=== PATIENT | male | born 1935 | race Caucasian/White ===

== ENCOUNTER 2017-12-12 20:14 | Emergency (ER) | payer MEDICARE, OTHER, SELFPAY ==
[2017-12-12 20:15] VITALS: BP 179/103; PULSE 55; RESP 15; TEMP 36.7; BMI 30.5
--- NOTE | 2017-12-12 20:44 | CT_ITS ---
STUDY: CT ABDOMEN AND PELVIS WITH CONTRAST REASON FOR EXAM: Male, 82 years old. Left lower quadrant pain, history of colorectal cancer with resection RADIATION DOSAGE (If Supplied By Facility): CTDIvol = ( 18.8 ) mGy, DLP = ( 1122.08 ) mGycm TECHNIQUE: Transaxial images were obtained from the dome of the diaphragm to the symphysis pubis with oral contrast. 100 ml of Isovue 300 contrast was administered. Sagittal and coronal images were reconstructed. Individualized dose optimization techniques were used for this CT. COMPARISON: Previous study of October 04, 2016 FINDINGS: There is bibasilar atelectasis. There is mild aneurysmal dilatation of the ascending aorta measuring up to 4.1 cm in diameter. There is intrahepatic periportal edema. The gallbladder is filled with calcified gallstones. There are multiple benign calcified granulomata of the spleen. There is diffuse atrophy of the pancreas. The right adrenal appears normal. There is a 1.4 x 0.9 cm left adrenal nodule. Normal right kidney. There is a mild left hydronephrosis and hydroureter to the level of the ureterovesicular junction. There is an obstructing 2 mm calculus within the distal left ureter at the level of the UVJ. There is left perinephric stranding. There is a 1.7 cm left renal cyst. Normal visualized stomach. Normal small intestine. Postsurgical changes of the right hemicolon are noted. There are postsurgical changes of the rectum with perirectal fatty stranding present. There is non-visualization of the appendix. There are calcified plaques of the abdominal aorta. There is dilatation of the left and right iliac arterial systems. Normal inferior vena cava. There are scattered nonpathologically enlarged retroperitoneal nodes. Normal urinary bladder. The prostate is within normal limits. Normal abdominal wall. There are diffuse degenerative changes of the visualized thoracolumbar spine. There is a grade 2 anterolisthesis of L4 relative to L5 with bilateral L4 spondylolysis. CT/Abdomen/Pelvis WITH Contrast IMPRESSION: 1. Obstructing 2 mm calculus in the distal left ureter at the level of the UVJ with proximal left hydroureter and hydronephrosis. Left perinephric stranding is present. 2. Bibasilar atelectasis. 3. Mild aneurysmal dilatation of the ascending thoracic aorta measuring up to 4.1 cm in diameter. 4. Intrahepatic periportal edema. 5. Cholelithiasis. 6. Calcified granulomas of the spleen. 7. Pancreatic atrophy. 8. Postsurgical changes of the right hemicolon and rectum. Perirectal fatty stranding is present. 9. There is dilatation of the left and right iliac arterial systems. 10. Lumbar degenerative changes. Grade 2 anterolisthesis of L4 relative to L5 with bilateral L5 spondylolysis. Electronically Signed: Nixon De Leon MD at 23:29 EDT , Service support ,
[2017-12-12] MEDS: 0.9% Normal Saline 1,000 ML 125 ML IV (21:04)
[2017-12-12] MEDS: proMETHazine 25 MG/ML Syringe 6.25 MG IV (21:05)
[2017-12-12] MEDS: Morphine 4 MG/ML Syringe IV (21:06)
[2017-12-12 21:18] LABS: Mean Corpuscular Volume 92.9 fL (80-94); Red Blood Count 4.92 M/mm3 (4.6-6.2)
[2017-12-12 21:20] LABS: POSITIVE COUNT NO; POSITIVE DIFFERENTIAL NO; POSITIVE MORPHOLOGY NO
[2017-12-12 21:22] LABS: Hematocrit 45.6 % (40-54); Hemoglobin 15.5 g/dl (13.0-16.5); Mean Corpuscular Hgb 31.5 pg (27.0-32.0); White Blood Count 8.2 K/mm3 (4.4-11.0)
[2017-12-12 21:23] LABS: Platelet Count 127 K/mm3 (150-450); RBC Distribution Width CV 13.3 % (11.6-14.6); RBC Distribution Width SD 43.6 fl (35.1-43.9)
[2017-12-12 21:24] LABS: Eosinophils% 0.9 % (0-5); Lymphocyte % 7.7 % (19-41); Mean Platelet Vol. 9.4 fl (6.2-12.0); Monocyte% 7.6 % (0-10); Neutrophil % 83.2 % (47-70)
[2017-12-12 21:25] LABS: Absolute Neutrophil Count 6.8 X10^3/uL (2.0-7.7); Basophil% 0.4 % (0-1); Lymphocyte # 0.63 X10^3/ul (4.0); Neutrophil # 6.79 X10^3/uL (2.7-7.7)
[2017-12-12 21:26] LABS: Absolute Lymphocyte Count 0.63 X10^3/ul (0.83-4.51); Basophil# 0.03 X10^3/uL; Eosinophil# 0.07 X10^3/uL; Monocyte# 0.62 X10^3/uL
[2017-12-12 21:39] LABS: Anion Gap 7 (5-15); BUN 26 mg/dL (7-18); BUN/Creat Ratio 20.5 RATIO (10-20); Chloride 112 mmol/L (98-107); Creatinine, Serum 1.27 mg/dL (0.70-1.30); EST Glomerular Filtration Rate 58 mL/min (>60); Est Glom Filt Rate - Afr Amer 70 mL/min (>60); Estimated Creatinine Clearance 49.22 ml/min; Glucose 144 mg/dL (74-106); Potassium 3.9 mmol/L (3.5-5.1); Sodium Level 144 mmol/L (136-145)
[2017-12-12 23:25] LABS: Bacteria 0 SEEN /hpf (None Seen); Mucous, Urine 0 SEEN /hpf (<or=2+); Red Blood Cells-Urine 0 SEEN /hpf (0-5); White Blood Cells 0 SEEN /hpf (0-5)
[2017-12-12 23:28] LABS: Color, Urine Yellow (Yellow); Glucose, Dipstick Normal (Normal); Ketone-Dipstick 15 mg/dl (Negative); Leukocyte Esterase-Dipstick Negative /ul (Negative); Nitrite-Dipstick Negative (Negative); Occult Blood-Urine Negative /ul (Negative); Protein-Dipstick Negative (Negative); Specific Gravity, Urine 1.025 (1.002-1.030); Urine Bilirubin Dipstick Negative (Negative); Urine Clarity Clear (Clear); Urine Urobilinogen Normal (Normal)
[2017-12-12 23:39] LABS: Squamous Epithelial Cells - UA 0-5 SEEN /hpf (0-5)
--- NOTE | 2017-12-12 23:50 | ED.VISSUMM ---
- ER Visit Summary Date of Service: 12/12/17 Chief Complaint: Abdominal pain History of Present Illness: The patient is a [address] Hernandez. He reports that he has left lower quadrant abdominal pain that began abruptly 3 hours ago. Some aching pain is 6 out of 10 hours and 5 out of 10 currently. Is worsened by sitting up. Is relieved by remaining still. Reports he has been nauseated and kind of vomited. No diarrhea. His last bowel movement was yesterday. He has had no melena hematochezia. No dysuria or frequency. He denies any flank pain. Physical Examination: Vitals: Stable. Afebrile. General: Well-nourished and well-developed. Head: Normocephalic atraumatic. Neck: Supple, no lymphadenopathy. No JVD. Nontender. Cardiovascular: Regular rate and rhythm. No murmurs. Respiratory: No respiratory distress. Clear to auscultation bilaterally. Abdominal: Soft, mild tenderness palpation left upper and left lower quadrants, nondistended, normal bowel sounds. No guarding, rebound, or peritoneal signs. Back: Nontender. Extremities: Nontender, no edema. Skin: Normal color, no rash. Neurologic: Alert and oriented ?3. Cranial nerves II through XII are intact. Normal strength and sensation. Psych: Normal affect. Test Results: CBC is marked for platelets of 127, segmented neutrophils 83, leukocytes of 8. Chem-7 is more for chloride 112, glucose 144, BUN of 26. UA is negative. CT the abdomen pelvis shows a number of chronic findings. However, it shows an obstructive 2 mm calculus left UVJ with hydroureter/nephrosis and left perinephric stranding. Emergency Department Course and Treatment: Patient is treated the dose of morphine and Phenergan IV. He is resting comfortably. Treatment Plan: Patient will be discharged with Fairview, Colace, Flomax, and Zofran. He will be sent home with a urine strainer. Instructed follow Dr. Blankenship in 1 week if he has not passed the stone. Return to the emergency department for any worsening symptoms. Disposition: To home in improved and stable condition. Impression: 1. Left ureterolithiasis. This note was generated with [employer] dictation software. It may contain incorrect words, spelling, and punctuation that were not noted in review of the chart prior to signing ED Disposition - Plan for ED Patient: Chief Complaint: Abd Pain Instructions: ED Stone Renal W Colic Prescriptions: Ondansetron [Zofran Odt] 4 mg PO Q8H PRN PRN #10 tablet PRN Reason: Nausea Docusate Sodium [Colace] 100 mg PO DAILY #20 capsule Hydrocodone/Acetaminophen [Fairview 5-325 Tablet] 1 - 2 each PO 4X/DAY PRN PRN 5 Days #20 tablet PRN Reason: Pain Tamsulosin HCl [Flomax] 0.4 mg PO DAILY 14 Days capsule Referrals: Silvano Blankenship MD [STAFF PHYSICIAN] - 1 Week if not improving
[2017-12-13] MEDS: Ondansetron ODT 4 MG Tablet PO (00:09)
[2017-12-13] MEDS: HYDROcodone Bitartrate/Apap 5/325 Tablet PO (00:09)
[2017-12-13 00:27] VITALS: BP 136/87; PULSE 69; RESP 16; O2SAT 95
== END 2017-12-13 00:28 | disposition home or self-care (01) ==
PROVIDERS: Emergency Provider Emergency Medicine; Family Provider Internal Medicine; PCP Internal Medicine
DX: N13.2 Hydronephrosis with renal and ureteral calculous obstruction (principal); I10 Essential (primary) hypertension; E78.00 Pure hypercholesterolemia, unspecified; Z85.038 Personal history of other malignant neoplasm of large intestine; Z90.49 Acquired absence of other specified parts of digestive tract; Z79.899 Other long term (current) drug therapy
CPT/HCPCS: 74177; 80048; 81001; 85025; 96361; 96374; 96375; 99284; J7030; Q9967; A4216

== ENCOUNTER 2018-01-26 10:30 | Outpatient (RCR) | payer MEDICARE, OTHER, SELFPAY | END 2018-01-26 19:00 | disposition home or self-care (01) | LOC: PT 10:30 | PROVIDERS: Family Provider Internal Medicine; PCP Internal Medicine; Visit Provider Internal Medicine | DX: R42 Dizziness and giddiness (principal) | CPT/HCPCS: 97161; 97530; G8978; G8979 ==

== ENCOUNTER → 2018-01-28 12:15 | Outpatient (CLI) | payer MEDICARE, OTHER, SELFPAY ==
--- NOTE | 2018-01-28 12:24 | MRI_ITS ---
STUDY: MRI BRAIN WITH AND WITHOUT CONTRAST REASON FOR EXAM: Male, 82 years old. VERTIGO off balance, chronic hearing loss, tinnitus x 1 year TECHNIQUE: Standardized multiplanar fat and water weighted pulse sequences were obtained. 10 ml of Gadavist contrast material was administered intravenously for the contrast portion of the examination. COMPARISON: None. FINDINGS: There is motion artifact. Normal size of the ventricles and extra-axial spaces for the patient's age. Normal white matter tracts of the supratentorial brain. Normal bilateral basal ganglia. Normal thalami. There is no extra-axial fluid accumulation. Normal flow voids within the major intracranial circulation suggesting patency by spin echo criteria. Normal venous enhancement. There is no enhancing intra-axial or extra-axial abnormality. Normal sella turcica, pituitary gland, infundibular stalk, optic chiasm and hypothalamus. Normal tectal plate and pineal gland. Normal midbrain, aravind and medulla. Normal cerebellum. Normal basal cisterns. Normal bilateral temporal bones. Normal bilateral internal auditory canals. There are bilateral ocular lens implants with otherwise normal intraorbital contents. There is mild mucosal thickening of the ethmoid sinus. . Normal calvarium and skull base. Normal visualized soft tissue structures. Normal visualized upper cervical spine. MRI/Brain W/WO Contrast IMPRESSION: Involutional changes of the brain, as described above. Electronically Signed: Soni Braun MD at 14:12 EDT , Service support ,
[2018-01-28 13:11] LABS: CREATININE FINGERSTICK 0.8 mg/dL (0.70-1.30); EGFR FINGERSTICK > 60.0000 mL/min (>60)
== END ==
PROVIDERS: Family Provider Internal Medicine; PCP Internal Medicine; Visit Provider Internal Medicine
DX: R42 Dizziness and giddiness (principal)
CPT/HCPCS: 70553; A9585

== ENCOUNTER 2018-02-06 04:19 | Emergency (ER) | payer MEDICARE, OTHER, SELFPAY ==
[2018-02-06 04:22] VITALS: BP 172/94; PULSE 64; RESP 18; TEMP 36.8; O2SAT 97; BMI 30.5
[2018-02-06] MEDS: Meclizine 12.5 MG Tablet PO (05:15)
--- NOTE | 2018-02-06 05:17 | ED.DCSUM_ITS ---
- ER Visit Summary Date of Service: 02/06/18 Chief Complaint: Dizziness History of Present Illness: The patient is a 82 M presenting for evaluation secondary dizziness. Patient states that over the course of the last 20 months he has been dealing with dizziness. Patient reports that it is a sudden onset sudden offset spinning type feeling that tends to be worsened with change in position. Patient denies that there is any sort of visual changes numbness weakness or speech difficulty associated with this. Patient currently has been undergoing workup and treatment for this by his primary care physician as well as ear nose and throat. Patient states that he had a MRI about a week or so ago , and states that he has a ear nose and throat appointment coming up the beginning of February. Patient reports that he simply felt that the symptoms were somewhat worse tonight, and decided to come in to the emergency department for further evaluation. He denies any recent infections, denies any tinnitus, denies any headaches, denies any head injuries and review of systems otherwise negative. Physical Examination: Vital signs are within normal limits, patient is afebrile. General: Patient is well-nourished well-developed and in no acute distress. Head: Normocephalic, atraumatic Eyes: Pupils equal round and reactive bilaterally, extra occular motion intact bialterally ENT: Moist mucous membranes Neck: Supple, no lymphadenopathy, no JVD, no meningismus CVS: Heart regular rate with irregular rhythm, no murmurs, rubs or gallops, radial pulses 2+ bilaterally Resp: Respirations nondistressed, lung sounds clear bilaterally Abdomen: Soft, nontender, nondistended, no palpable masses, normal bowel sounds Back: Nontender Extremities: Nontender, atraumatic, active full range of motion, no peripheral edema Skin: warm, no rashes, no petechia Neuro: Alert and oriented x 4, CN 2-12 intact, no lateralizing neurological defecits, Katy-Hallpike maneuver is positive with testing on the right side, cerebellar testing is negative Psyc: Normal affect Test Results: None indicated Emergency Department Course and Treatment: Patient presented for evaluation secondary dizziness. Patient's history and physical exam seems very consistent with peripheral vertigo. He had an MRI about a week or so ago that I reviewed the records for showed no evidence of stroke and I do not believe that any repeat imaging or lab work are necessary. I asked patient if he is on any sort of symptomatic treatment for his vertigo he stated no patient will be started on a course of meclizine for this. He was recommended to follow-up with your nose and throat. Disposition: Discharge Impression: 1. Right-sided BPPV This note was generated with [employer] dictation software. It may contain incorrect words, spelling, and punctuation that were not noted in review of the chart prior to signing ED Disposition - Plan for ED Patient: Disposition: Home or Assisted Living Chief Complaint: Dizziness Diagnosis: Benign positional vertigo Instructions: ED BPV Vertigo Prescriptions: Meclizine HCl [Antivert] 12.5 mg PO 4X/DAY PRN PRN #30 tab PRN Reason: Dizziness Referrals: Wiley Reagan MD [STAFF PHYSICIAN] - Keep Bert appointment
[2018-02-06 05:20] VITALS: BP 161/105; PULSE 73; RESP 19; O2SAT 93
== END 2018-02-06 05:20 | disposition home or self-care (01) ==
PROVIDERS: Emergency Provider Emergency Medicine; Family Provider Internal Medicine; PCP Internal Medicine
DX: H81.11 Benign paroxysmal vertigo, right ear (principal)
CPT/HCPCS: 99283

== ENCOUNTER → 2018-03-02 08:32 | Outpatient (CLI) | payer MEDICARE, OTHER, SELFPAY ==
--- NOTE | 2018-03-02 08:36 | CDU_ITS ---
Reason For Study: ataxia Rt. Velocities/BP Lt. Velocities/BP Prox CCA 90.3/22.9 cm/sec. Prox CCA 92.0/23.5. cm/sec. Mid CCA 90.9/28.7 cm/sec. Mid CCA 83.8/21.7 cm/sec. Dist CCA 63.3/21.1 cm/sec. Dist CCA 80.9/23.5 cm/sec. Prox ICA 56.3/21.1 cm/sec. Prox ICA 76.8/18.8 cm/sec. Mid ICA 74.5/30.5 cm/sec. Mid ICA 90.5/28.1 cm/sec. Dist ICA 65.2/26.9 cm/sec. Dist ICA 61.6/22.9 cm/sec. Rt. ICA/CCA = .8. Lt. ICA/CCA = 1.1. Prox ECA 94.4/13.5 cm/sec. Prox ECA 71.8/14.0 cm/sec. Rt. Vert. 40.5/14.1 cm/sec. Lt. Vert. 62.1/19.9 cm/sec. Right Extracranial There is intimal thickening but no significant atherosclerotic plaque noted in the right common carotid artery. There is intimal thickening but no significant atherosclerotic plaque noted in the right internal carotid artery. There is intimal thickening but no significant atherosclerotic plaque noted in the right external carotid artery. Antegrade flow is noted in the right vertebral artery. Heterogenous structure in the thyroid measuring 2.45 x 2.25 cm. Area is nonvascular. Left Extracranial There is intimal thickening but no significant atherosclerotic plaque noted in the left common carotid artery. There is intimal thickening but no significant atherosclerotic plaque noted in the left internal carotid artery. The left internal carotid artery is very tortuous. There is intimal thickening but no significant atherosclerotic plaque noted in the left external carotid artery. Antegrade flow is noted in the left vertebral artery. Procedure Carotid Duplex [id number]. The exam was diagnostic. Exam performed in department. Interpretation Summary No significant atherosclerotic plaque or stenosis noted in the internal carotid arteries bilaterally. Flow within the vertebral arteries is antegrade bilaterally. A non-vascular, heterogeneous structure is noted in the right thyroid lobe, measuring 2.45 cm x 2.25 cm. Clinical correlation is advised. Ordering Physician: Matthieu Ferguson Performed By: Tang Paulson RVT
== END ==
PROVIDERS: Family Provider Internal Medicine; PCP Internal Medicine; Visit Provider Otolaryngology Otolaryngology/Facial Plastic Surgery
DX: R27.0 Ataxia, unspecified (principal)
CPT/HCPCS: 93880